=== PATIENT | male | born 2000 | race Caucasian/White ===

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

== ENCOUNTER 2024-02-17 22:22 | Emergency (ER) | payer BC, OTHER ==
[~2024-02-17] VITALS: Ht 185.4 cm; Wt 87.1 kg
[2024-02-17] MEDS: PROMETHAZINE HCL 25 MG/ML 1ML AMPULE IM ONE (23:00)
[2024-02-17] MEDS: KETOROLAC 15MG/ML VIAL (15MG/ML) IM ONE (23:01)
[2024-02-18] MEDS ORDERED: AMOX-426 PO (00:19)
[2024-02-18] MEDS ORDERED: PSEU120T62 PO (00:19)
[2024-02-18 00:35] VITALS: BP 129/86; PULSE 90; RESP 18; O2SAT 99
== END 2024-02-18 00:36 | disposition home or self-care (01) ==
LOC: EDH 22:22
DX: J32.9 Chronic sinusitis, unspecified (principal); H57.12 Ocular pain, left eye
CPT/HCPCS: 99285; 70450; 71045; 70486; 96372 ×2; J2550; J1885